=== PATIENT | female | born 1960 | race Caucasian/White ===

== ENCOUNTER 2025-08-27 13:23 | Outpatient (CLI) | payer OTHER, SELFPAY ==
[2025-08-31 07:48] LABS: HPV Source Vaginal
[2025-09-02 08:12] LABS: Pap Test Digital Imaging Done
== END 2025-08-27 13:24 | disposition home or self-care (01) ==
PROVIDERS: PCP Family Medicine; Visit Provider Family Medicine
DX: Z12.4 Encounter for screening for malignant neoplasm of cervix (principal)
CPT/HCPCS: 87624; 87625; 88141; 88142; 88175

== ENCOUNTER 2025-08-30 08:40 | Outpatient (CLI) | payer OTHER, SELFPAY ==
--- NOTE | 2025-08-30 10:50 | P.ANES_ITS ---
Anesthesia Charges Start Date/Time Anesthesia Start Date: 08/30/25 Anesthesia Start Time: 10:14 Stop Date/Time Anesthesia Stop Date: 08/30/25 Anesthesia Stop Time: 10:46 Coding CPT Codes CPT Codes: TREVOR LWR INTST NDSC NOS - [id number] ([id number]) P2 - PATIENT W/MILD SYST DISEASE, QK - AUTOMATIC DRILL OPERATOR 2-4 CNCRNT ANES PROC, QX - PERSONAL CARE AID SVC W/ MD MED DIRECTION
--- NOTE | 2025-08-30 10:50 | W.ANESCHARGE ---
Anesthesia Charges Start Date/Time Anesthesia Start Date: 08/30/25 Anesthesia Start Time: 10:14 Stop Date/Time Anesthesia Stop Date: 08/30/25 Anesthesia Stop Time: 10:46 Coding CPT Codes CPT Codes: TREVOR LWR INTST NDSC NOS - [id number] ([id number]) P2 - PATIENT W/MILD SYST DISEASE, QK - FIRE SPRINKLER APPARATUS INSPECTOR 2-4 CNCRNT ANES PROC, QX - MEDIA SALES CONSULTANT SVC W/ MD MED DIRECTION
--- NOTE | 2025-08-30 13:04 | P.ANES_ITS ---
Anesthesia Charges Start Date/Time Anesthesia Start Date: 08/30/25 Anesthesia Start Time: 10:14 Stop Date/Time Anesthesia Stop Date: 08/30/25 Anesthesia Stop Time: 10:46 Coding CPT Codes CPT Codes: TREVOR LWR INTST NDSC NOS - [id number] ([id number]) P2 - PATIENT W/MILD SYST DISEASE, QK - STRINGING MACHINE OPERATOR 2-4 CNCRNT ANES PROC, QX - FOUNDRY PROCESS ENGINEER SVC W/ MD MED DIRECTION
--- NOTE | 2025-08-30 13:04 | W.ANESCHARGE ---
Anesthesia Charges Start Date/Time Anesthesia Start Date: 08/30/25 Anesthesia Start Time: 10:14 Stop Date/Time Anesthesia Stop Date: 08/30/25 Anesthesia Stop Time: 10:46 Coding CPT Codes CPT Codes: TREVOR LWR INTST NDSC NOS - [id number] ([id number]) P2 - PATIENT W/MILD SYST DISEASE, QK - PRINCIPLE INDUSTRIAL HYGIENIST 2-4 CNCRNT ANES PROC, QX - UTILITY SALES AND SERVICE MANAGER SVC W/ MD MED DIRECTION
== END 2025-08-30 08:41 | disposition home or self-care (01) ==
LOC: OP CLINIC 08:42
PROVIDERS: PCP Family Medicine; Visit Provider Surgery
DX: Z12.11 Encounter for screening for malignant neoplasm of colon (principal); D12.3 Benign neoplasm of transverse colon; D12.8 Benign neoplasm of rectum; Z86.0100 Personal history of colon polyps, unspecified
CPT/HCPCS: 00811; 00812; 45385; J2704

== ENCOUNTER 2025-09-07 13:44 | Outpatient (CLI) | payer OTHER, SELFPAY ==
--- NOTE | 2025-09-07 14:00 | CRLHL7_ITS ---
For Patients: As a result of the Century Cures Act, medical imaging exams and procedure reports are released immediately into your electronic medical record. You may view this report before your referring provider. If you have questions, please contact your health care provider. INDICATION: Lung cancer screening. Significant smoking history. TECHNIQUE: Low-dose volumetric helical scanning of the thorax was performed without IV contrast material. Coronal and sagittal reconstructions were obtained. COMPARISON: None FINDINGS: No noncalcified pulmonary nodule is identified. Several tiny calcified granulomas are demonstrated in the left lung. Centrilobular emphysema is demonstrated. Mild scarring in the inferomedial right middle lobe and lingula is demonstrated. No infiltrate is evident. There is no significant airway abnormality. No pleural effusion is demonstrated. There is no mediastinal or hilar lymph adenopathy. The heart size is normal. Calcified coronary arterial plaque is demonstrated. Images of the upper abdomen demonstrate a 1.5 cm gallstone and a 1.5 cm left hepatic lobe cyst. IMPRESSION: 1. Negative for the purpose of lung cancer screening. Lung-RADS CATEGORY 1: NEGATIVE: Continue annual screening, if eligible, with low-dose chest CT in 12 months is recommended. 2. Centrilobular emphysema. 3. Coronary artery disease. 4. Cholelithiasis. Please note that all CT scans at this facility use dose modulation, iterative reconstruction, and/or weight-based dosing when appropriate to reduce radiation dose to as low as reasonably achievable. Dictated by Mark Kirkland MD @ 09/08/2025 1:07:16 PM (Electronically Signed)
== END 2025-09-07 13:45 | disposition home or self-care (01) ==
LOC: CT 13:45
PROVIDERS: PCP Family Medicine; Visit Provider Family Medicine
DX: Z12.2 Encounter for screening for malignant neoplasm of respiratory organs (principal); J43.9 Emphysema, unspecified; I25.10 Atherosclerotic heart disease of native coronary artery without angina pectoris; K80.20 Calculus of gallbladder without cholecystitis without obstruction; F17.210 Nicotine dependence, cigarettes, uncomplicated
CPT/HCPCS: 71271